=== PATIENT | male | born 1995 | race Caucasian/White ===

== ENCOUNTER 2017-04-24 05:37 | Emergency (ER) | payer OTHER ==
[~2017-04-24] VITALS: Ht 167.6 cm; Wt 70.0 kg
[2017-04-24 05:43] VITALS: BP 136/84; PULSE 103; RESP 18; TEMP 98.7; O2SAT 100
--- NOTE | 2017-04-24 05:50 | PD ---
HPI Chief Complaint: Alcohol/Drug Intoxication Time Seen by Provider: 05:48 Travel History International Travel<30 days: No Contact w/Intl Traveler<30days: No Traveled to known affect area: No History of Present Illness HPI This is a 22-year-old male who presents under [place] act initiated by the Police Department. The patient reports that this evening he was drinking at a bar called [place] and he took over to someone's house. He reports that he mistook the house as his own and when he tried to convince the resident of the house to democrat he says that "he was not down to democrat" and the police were called. He reports that the whole thing was his fault and he is apologetic for becoming intoxicated this evening. He denies any injuries. He denies any illicit drug use. He has no medical complaints at this time. [facility] Social History Alcohol Use: Yes Tobacco Use: No Allergies-Medications (Allergen,Severity, Reaction): Coded Allergies: No Known Allergies (Unverified , 04/24/17) Reported Meds & Prescriptions Reported Meds & Active Scripts Active No Active Prescriptions or Reported Medications Review of Systems ROS Limitations: Intoxication Except as stated in HPI: all other systems reviewed are Neg Physical Exam Exam Limitations: Intoxication Narrative GENERAL: Well-developed well-nourished male in no acute distress SKIN: Warm and dry. HEAD: Atraumatic. Normocephalic. EYES: Pupils equal and round. No scleral icterus. No injection or drainage. ENT: No nasal bleeding or discharge. Mucous membranes pink and moist. NECK: Trachea midline. No JVD. CARDIOVASCULAR: Regular rate and rhythm. No murmur appreciated. RESPIRATORY: No accessory muscle use. Clear to auscultation. Breath sounds equal bilaterally. GASTROINTESTINAL: Abdomen soft, non-tender, nondistended. Hepatic and splenic margins not palpable. MUSCULOSKELETAL: No obvious deformities. No clubbing. No cyanosis. No edema. NEUROLOGICAL: Awake and alert. No obvious cranial nerve deficits. Motor grossly within normal limits. Mildly slurred speech. Steady gait. Data Data Last Documented VS Vital Signs Date Time Temp Pulse Resp B/P (MAP) Pulse Ox O2 Delivery O2 Flow Rate FiO2 04/24/17 05:48 18 100 04/24/17 05:43 98.7 103 136/84 (101) [facility] Medical Decision Making Medical Screen Exam Complete: Yes Emergency Medical Condition: Yes Medical Record Reviewed: Yes Differential Diagnosis Alcohol intoxication, closed head injury, polysubstance abuse Narrative Course The patient will remain here until he is clinically sober or until he is able to obtain a sober ride home and then he will be discharged. Diagnosis Primary Impression: Alcohol intoxication Med/Other Pt SpecificInfo: No Change to Meds Scripts No Active Prescriptions or Reported Meds Disposition: 01 DISCHARGE HOME Condition: Stable Rohit Don Apr 24, 2017 05:50
--- NOTE | 2017-04-24 12:04 | PD ---
Data Data Last Documented VS Vital Signs Date Time Temp Pulse Resp B/P (MAP) Pulse Ox O2 Delivery O2 Flow Rate FiO2 04/24/17 05:48 18 100 04/24/17 05:43 98.7 103 136/84 (101) MDM Supervised Visit with KAUSHIK: Yes Narrative Course Patient reassessed by me at noon, clinically sober ambulance with an even narrow -base gait, he wishes to be discharged to the waiting room as he has friends coming to pick him up. There is no indication to hold him against his will at this time. He is stable for discharge Diagnosis Primary Impression: Alcohol intoxication Patient Instructions: General Instructions Departure Forms: Tests/Procedures Scripts No Active Prescriptions or Reported Meds Disposition: 01 DISCHARGE HOME Condition: Stable Rex Sarmiento MD Apr 24, 2017 12:04
== END 2017-04-24 12:19 | disposition home or self-care (01) ==
LOC: NEPD 05:37
DX: F10.129 Alcohol abuse with intoxication, unspecified (principal)
CPT/HCPCS: 99283